=== PATIENT | female | born 1980 | race Hispanic/Latino ===

== ENCOUNTER 2020-06-13 06:26 | Day surgery (SDC) | payer OTHER, MEDICARE ==
[2020-06-13] VITALS (11 sets, daily range): BP systolic 118–141; BP diastolic 67–78
[~2020-06-13] VITALS: Ht 162.6 cm; Wt 127.5 kg
[~2020-06-13 06:26] MED LIST: CYAN25002 PO; GABA-529 PO; LEVO125T11 PO; LORA-192 PO; LURA40TA PO; PHEN-615 PO; SODIUM TETRADECYL SULFATE 30 MG/ML VIAL IV SCH; TRAZ-187 PO; VITAMIN D PO
[2020-06-13 07:45] LABS: BASOPHILS % (AUTO) 0.5 % (0.0-5.0); EOSINOPHILS % (AUTO) 1.7 % (0.0-8.0); HEMATOCRIT 46.3 % (36-48); LYMPHOCYTES % (AUTO) 29.6 % (21.0-51.0); MEAN CORPUSCULAR HEMOGLOBIN 27.6 pg (27.0-33.0); MEAN CORPUSCULAR HGB CONC 31.1 g/dL (32.0-36.0); MEAN CORPUSCULAR VOLUME 88.7 fL (79-99); MONOCYTES % (AUTO) 5.5 % (3.0-13.0); NEUTROPHILS % (AUTO) 62.3 % (40.0-77.0); PLATELET COUNT (AUTO) 275 K/uL (130-400); RED BLOOD CELL COUNT(AUTO) 5.22 MIL/uL (4.00-5.50); RED CELL DISTRIBUTION WIDTH 14.2 % (11.0-15.5); WHITE BLOOD COUNT (AUTO) 7.5 K/uL (4.8-10.8)
[2020-06-13] MEDS ORDERED: LIDOCAINE PF 2% 5ML ABBOJECT ONE ×2 (07:50→07:51)
[2020-06-13] MEDS ORDERED: DEXAMETHASONE SOD PHOSPHATE 10MG/ML 1ML VIAL ONE (07:50)
[2020-06-13] MEDS ORDERED: SUCCINYLCHOLINE CHLORIDE 20 MG/ML 10 ML VIAL ONE ×2 (07:50→07:52)
[2020-06-13] MEDS ORDERED: ONDANSETRON HCL 4 MG/2 ML VIAL ONE (07:50)
[2020-06-13] MEDS ORDERED: MIDAZOLAM HCL 1 MG/ML 2ML VIAL ONE ×2 (07:50→09:26)
[2020-06-13] MEDS ORDERED: GLYCOPYRROLATE 1 MG/5 ML SYRINGE ONE (07:51)
[2020-06-13] MEDS ORDERED: ROCURONIUM 10MG/1ML SYR 10 MG/ML ML ONE (07:51)
[2020-06-13] MEDS ORDERED: FENTANYL CITRATE PF 50 MCG/1 ML 2ML VIAL ONE (07:51)
[2020-06-13] MEDS ORDERED: PROPOFOL 10 MG/ML 20ML VIAL IV ONE ×3 (07:51→09:26)
[2020-06-13] MEDS ORDERED: NEOSTIGMINE 5MG/5ML SYR IV ONE (07:51)
[2020-06-13 07:55] LABS: POTASSIUM 4.4 mmol/L (3.5-5.1)
[2020-06-13] MEDS ORDERED: SODIUM CHLORIDE 0.9% 1000ML 1,000 ML IV ONE (08:10)
[2020-06-13] MEDS ORDERED: PHENYLEPHRINE HCL 10 MG/ML 1ML VIAL IV ONE (09:26)
[2020-06-13] MEDS ORDERED: LIDOCAINE HCL 1% 20 ML VIAL ONE (09:26)
[2020-06-13] MEDS ORDERED: ACETAMINOPHEN-CODEINE 300/30MG TAB PO SCH (10:30)
== END 2020-06-13 10:45 | disposition home or self-care (01) ==
LOC: DAH 06:26
PROVIDERS: ATTEND Surgery
DX: K21.9 Gastro-esophageal reflux disease without esophagitis (principal); Z20.822 Contact with and (suspected) exposure to COVID-19; I10 Essential (primary) hypertension; E11.9 Type 2 diabetes mellitus without complications; F31.9 Bipolar disorder, unspecified; F41.9 Anxiety disorder, unspecified; G47.30 Sleep apnea, unspecified; E03.9 Hypothyroidism, unspecified; Z98.890 Other specified postprocedural states; Z88.8 Allergy status to other drugs, medicaments and biological substances; Z98.84 Bariatric surgery status; Z87.891 Personal history of nicotine dependence; Z79.899 Other long term (current) drug therapy; Z79.890 Hormone replacement therapy
CPT/HCPCS: 36415; 43236; 80048; 82948; 84703; 85025; A4215 ×2; A4221; A4222; A4223; A4606; A4620; A4657; A4663; C9803; J0330 ×2; J1100; J2001 ×2; J2250; J2370; J2405; J2704 ×2; J2710; J3490 ×2; J7030; U0003; J3010

== ENCOUNTER 2020-07-14 06:55 | Day surgery (SDC) | payer OTHER, MEDICARE ==
[2020-07-14] VITALS (15 sets, daily range): BP systolic 112–154; BP diastolic 58–84
[~2020-07-14] VITALS: Ht 162.6 cm; Wt 121.1 kg
[~2020-07-14 06:55] MED LIST changes: -SODIUM TETRADECYL SULFATE 30 MG/ML VIAL IV SCH
[2020-07-14] MEDS ORDERED: PROPOFOL 10 MG/ML 20ML VIAL IV ONE (08:18)
[2020-07-14] MEDS ORDERED: SODIUM TETRADECYL SULFATE 30 MG/ML VIAL IV SCH (08:30)
[2020-07-14] MEDS ORDERED: ONDANSETRON HCL 4 MG/2 ML VIAL ONE (08:58)
[2020-07-14] MEDS ORDERED: MEPERIDINE-PF 50 MG/ML SYG ONE (09:17)
== END 2020-07-14 10:00 | disposition home or self-care (01) ==
LOC: ENDO 06:55 → DAH 06:55 → ENDO 10:00
PROVIDERS: ATTEND Surgery
DX: K21.9 Gastro-esophageal reflux disease without esophagitis (principal); Z20.822 Contact with and (suspected) exposure to COVID-19; I10 Essential (primary) hypertension; G47.30 Sleep apnea, unspecified; F41.9 Anxiety disorder, unspecified; E11.9 Type 2 diabetes mellitus without complications; F31.9 Bipolar disorder, unspecified; E03.9 Hypothyroidism, unspecified; Z98.84 Bariatric surgery status; Z90.721 Acquired absence of ovaries, unilateral; Z98.890 Other specified postprocedural states; Z87.891 Personal history of nicotine dependence; Z79.899 Other long term (current) drug therapy
CPT/HCPCS: 43236; A4215 ×2; A4221; A4222; A4223; A4606; A4620; A4657; A4663; C9803; J2175; J2405; J2704; J3490; U0003

== ENCOUNTER 2020-08-18 06:54 | Day surgery (SDC) | payer OTHER, MEDICARE ==
[~2020-08-18] VITALS: Ht 162.6 cm; Wt 114.8 kg
[2020-08-18] VITALS (9 sets, daily range): BP systolic 95–152; BP diastolic 53–85
[2020-08-18] MEDS ORDERED: SODIUM TETRADECYL SULFATE 30 MG/ML VIAL IV SCH (08:00)
[2020-08-18] MEDS ORDERED: SODIUM CHLORIDE 0.9% 1000ML 1,000 ML IV ONE (08:17)
[2020-08-18] MEDS ORDERED: PROPOFOL 10 MG/ML 20ML VIAL IV ONE (08:31)
[2020-08-18] MEDS ORDERED: GLYCOPYRROLATE 1 MG/5 ML SYRINGE ONE (08:34)
== END 2020-08-18 09:55 ==
LOC: ENDO 06:54 → DAH 06:54 → ENDO 09:55
PROVIDERS: ATTEND Surgery
DX: K21.9 Gastro-esophageal reflux disease without esophagitis (principal); Z98.84 Bariatric surgery status; Z20.822 Contact with and (suspected) exposure to COVID-19
CPT/HCPCS: 43236; A4215; A4221; A4222; A4223; A4606; A4620; A4663; C9803; J2704; J3490 ×3; J7030; U0003

== ENCOUNTER 2020-10-31 06:53 | Day surgery (SDC) | payer OTHER, MEDICARE ==
[~2020-10-31] VITALS: Ht 165.1 cm; Wt 115.7 kg
[2020-10-31] VITALS (8 sets, daily range): BP systolic 106–131; BP diastolic 67–83
[~2020-10-31 06:53] MED LIST changes: +SODIUM TETRADECYL SULFATE 30 MG/ML VIAL IV SCH
[2020-10-31] MEDS ORDERED: SCOPOLAMINE HYDROBROMIDE 1 EACH ADH..PATCH TD ONE (08:01)
[2020-10-31] MEDS ORDERED: ONDANSETRON 4MG INJ ONE ×2 (08:01→11:29)
[2020-10-31] MEDS ORDERED: 0.9%NACL 1000ML 1,000 ML IV ONE (08:26)
[2020-10-31] MEDS ORDERED: PROPOFOL 10 MG/ML 20ML VIAL IV ONE (10:31)
[2020-10-31] MEDS ORDERED: MIDAZOLAM HCL 1 MG/ML 2ML VIAL ONE (10:31)
[2020-10-31] MEDS ORDERED: LIDOCAINE HCL 400MG/20ML VIAL ONE (10:32)
[2020-10-31] MEDS ORDERED: GLYCOPYRROLATE 0.2 MG/ML 5 ML VIAL ONE (10:37)
[2020-10-31] MEDS ORDERED: DEXAMETHASONE SOD PHOSPHATE 10MG/ML 1ML VIAL ONE (11:28)
== END 2020-10-31 12:15 | disposition home or self-care (01) ==
LOC: DAH 06:53 → ENDO 06:53
PROVIDERS: ATTEND Surgery
DX: K21.9 Gastro-esophageal reflux disease without esophagitis (principal); Z20.822 Contact with and (suspected) exposure to COVID-19; R13.10 Dysphagia, unspecified; G47.30 Sleep apnea, unspecified; I10 Essential (primary) hypertension; E66.01 Morbid (severe) obesity due to excess calories; E11.9 Type 2 diabetes mellitus without complications; F41.9 Anxiety disorder, unspecified; F31.9 Bipolar disorder, unspecified; E03.9 Hypothyroidism, unspecified; Z98.84 Bariatric surgery status; Z98.890 Other specified postprocedural states; Z87.891 Personal history of nicotine dependence; Z68.41 Body mass index [BMI] 40.0-44.9, adult; Z79.899 Other long term (current) drug therapy
CPT/HCPCS: 36415; 43236; 84703; 87635; A4215 ×2; A4216; A4221; A4222; A4223; A4606; A4620; A4657; A4663; C9803; J1100; J2250; J2405 ×2; J2704; J3490 ×3; J7030; 43235

== ENCOUNTER → 2021-10-28 | Outpatient (CLI) | payer OTHER, MEDICARE ==
[~2021-10-28] MED LIST changes: -LURA40TA PO; +LURA40TA2 PO; -SODIUM TETRADECYL SULFATE 30 MG/ML VIAL IV SCH
== END | disposition home or self-care (01) ==
LOC: RAH 07:32
PROVIDERS: ATTEND Internal Medicine
DX: K80.20 Calculus of gallbladder without cholecystitis without obstruction (principal); R10.9 Unspecified abdominal pain
CPT/HCPCS: 76700

== ENCOUNTER 2022-02-05 06:52 | Day surgery (SDC) | payer OTHER, MEDICARE ==
[2022-02-02 11:59] LABS: BASOPHILS % (AUTO) 0.6 % (0.0-5.0); EOSINOPHILS % (AUTO) 1.9 % (0.0-8.0); HEMATOCRIT 42.4 % (36-48); LYMPHOCYTES % (AUTO) 34.7 % (21.0-51.0); MEAN CORPUSCULAR HEMOGLOBIN 28.2 pg (27.0-33.0); MEAN CORPUSCULAR HGB CONC 31.8 g/dL (32.0-36.0); MEAN CORPUSCULAR VOLUME 88.5 fL (79-99); MONOCYTES % (AUTO) 6.1 % (3.0-13.0); NEUTROPHILS % (AUTO) 56.4 % (40.0-77.0); PLATELET COUNT (AUTO) 233 K/uL (130-400); RED BLOOD CELL COUNT(AUTO) 4.79 MIL/uL (4.00-5.50); RED CELL DISTRIBUTION WIDTH 13.6 % (11.0-15.5); WHITE BLOOD COUNT (AUTO) 6.2 K/uL (4.8-10.8)
[2022-02-02 12:39] LABS: POTASSIUM 4.5 mmol/L (3.5-5.1)
[2022-02-04 09:52] VITALS: BP 115/70
[~2022-02-05] VITALS: Ht 165.1 cm; Wt 104.9 kg
[2022-02-05] VITALS (18 sets, daily range): BP systolic 97–122; BP diastolic 54–70
[~2022-02-05 06:52] MED LIST changes: +BUPIVACAINE/PF 0.5% 30ML VIAL ONE; -CYAN25002 PO; -GABA-529 PO; +GABA300C PO; -LURA40TA2 PO; +LURA80TA2 PO; +MIDO5TAB4 PO; -PHEN-615 PO; +ROSU10TA28 PO; -TRAZ-187 PO; +TRAZ300T2 PO; -VITAMIN D PO
[2022-02-05] MEDS ORDERED: SUCCINYLCHOLINE 200MG/10ML SYR ONE (06:58)
[2022-02-05] MEDS ORDERED: DEXAMETHASONE SOD PHOSPHATE 10MG/ML 1ML VIAL ONE (06:58)
[2022-02-05] MEDS ORDERED: LIDOCAINE PF 100MG/5ML (2%) SYRINGE 5ML ONE (06:58)
[2022-02-05] MEDS ORDERED: ONDANSETRON 4MG INJ ONE (06:59)
[2022-02-05] MEDS ORDERED: GLYCOPYRROLATE 1 MG/5 ML SYRINGE ONE (06:59)
[2022-02-05] MEDS ORDERED: NEOSTIGMINE 5MG/5ML SYR IV ONE (06:59)
[2022-02-05] MEDS ORDERED: MIDAZOLAM HCL 1 MG/ML 2ML VIAL ONE (06:59)
[2022-02-05] MEDS ORDERED: PROPOFOL 10 MG/ML 20ML VIAL IV ONE (06:59)
[2022-02-05] MEDS ORDERED: FENTANYL CITRATE PF 50 MCG/1 ML 5ML AMP IV ONE ×2 (07:00→08:48)
[2022-02-05] MEDS ORDERED: ROCURONIUM 10MG/1ML SYR 10 MG/ML ML ONE (07:00)
[2022-02-05] MEDS ORDERED: LACTATED RINGERS 1000ML 1,000 ML IV ONE (07:08)
[2022-02-05] MEDS ORDERED: CLINDAMYCIN IVPB 900MG/50ML 50 ML IV ONE (07:08)
[2022-02-05] MEDS ORDERED: 0.9%NACL 1000ML 1,000 ML IV ONE (07:31)
[2022-02-05] MEDS ORDERED: CEFAZOLIN SODIUM 2 GM VIAL IVPB PRN (08:00)
[2022-02-05] MEDS ORDERED: CLINDAMYCIN 900MG/6ML INJ IJ ONE (08:05)
[2022-02-05] MEDS ORDERED: MEPERIDINE-PF 25 MG/ML SYG ONE ×2 (08:49→10:11)
== END 2022-02-05 11:10 | disposition home or self-care (01) ==
LOC: DAH 06:52
PROVIDERS: ATTEND Surgery
DX: K80.64 Calculus of gallbladder and bile duct with chronic cholecystitis without obstruction (principal); Z20.822 Contact with and (suspected) exposure to COVID-19; K82.8 Other specified diseases of gallbladder; I10 Essential (primary) hypertension; E11.9 Type 2 diabetes mellitus without complications; E66.01 Morbid (severe) obesity due to excess calories; E03.9 Hypothyroidism, unspecified; F41.9 Anxiety disorder, unspecified; F31.9 Bipolar disorder, unspecified; G47.30 Sleep apnea, unspecified; Z98.890 Other specified postprocedural states; Z98.84 Bariatric surgery status; Z87.891 Personal history of nicotine dependence; Z79.899 Other long term (current) drug therapy; Z79.890 Hormone replacement therapy; Z68.37 Body mass index [BMI] 37.0-37.9, adult
CPT/HCPCS: 80048; 84703; 85025; 87426; 36415; 47562; 82948 ×2; A6260; A4663; J7030 ×2; J7120; J3010 ×2; J0330; J3490 ×3; J1100; J2710; J2001; J2250; J2704; J2405; J2175 ×2; C1769 ×3; A4649 ×2; A4215; A4223; A4222; A4221; A4600

== ENCOUNTER → 2022-03-02 | Outpatient (CLI) | payer OTHER, MEDICARE ==
[~2022-03-02] MED LIST changes: -BUPIVACAINE/PF 0.5% 30ML VIAL ONE
== END | disposition home or self-care (01) ==
LOC: RAH 08:28
PROVIDERS: ATTEND Surgery
DX: K46.9 Unspecified abdominal hernia without obstruction or gangrene (principal); Z90.49 Acquired absence of other specified parts of digestive tract
CPT/HCPCS: 76700